=== PATIENT | male | born 1965 | race Caucasian/White ===

== ENCOUNTER 2019-12-21 15:28 | Outpatient (CLI) | payer OTHER, SELFPAY ==
--- NOTE | ~2019-12-21 | XR_ITS ---
EXAMINATION: XR lumbar spine 6V w bending DATE: 12/21/2019 15:57 INDICATION: Dorsalgia unspecified TECHNIQUE: Anteroposterior, lateral in neutral, flexion and extension, and bilateral oblique views of the lumbar spine, and cone-down lateral view of the lumbosacral junction were obtained. COMPARISON: None. FINDINGS: Bone alignment is normal. There is no laxity with flexion or extension. The vertebral body heights are maintained. There is mild loss of intervertebral disc space height at L5-S1. Small degene rative osteophytes project from the anterior endplates of multiple vertebral bodies. The bowel gas pa ttern is normal. IMPRESSION: 1. Mild lumbar spondylosis without acute findings. Reviewed, dictated and finalized at location A.
== END 2019-12-21 15:29 | disposition home or self-care (01) ==
PROVIDERS: PCP Family Medicine; Visit Provider Family Medicine
DX: M54.9 Dorsalgia, unspecified (principal); M47.816 Spondylosis without myelopathy or radiculopathy, lumbar region
CPT/HCPCS: 72114

== ENCOUNTER → 2020-02-14 09:48 | Outpatient (CLI) | payer OTHER, SELFPAY ==
--- NOTE | ~2020-02-14 | MR_ITS ---
EXAMINATION: MR lumbar spine wo con DATE: 02/14/2020 10:25 INDICATION: Lumbago with sciatica including occasional bilateral leg pain. TECHNIQUE: Magnetic resonance imaging (MRI) of the lumbar spine was performed without intravenous con trast. Sequences included sagittal T2-weighted FSE, sagittal T2-weighted FS FSE, sagittal T1-weighted FSE, and axial T2-weighted FSE. COMPARISON: Radiograph dated 12/21/2019 FINDINGS: 2-3 mm retrolisthesis of L5 on S1. Minimal lower lumbar levocurvature. Vertebral body heights are nor mal. Normal marrow signal. Mild disc desiccation and disc height loss, minimal at L3-L4 and mild at L4-L5 and L5-S1. The conus medullaris terminates at L1. There is normal signal in the caudal spinal c ord. Paravertebral soft tissues are unremarkable. The following disc levels are specifically discusse d: T12-L1: The disc does not extend beyond the endplate margin. There is mild right facet joint osteoart hritis. There is no neural foraminal stenosis. There is no central canal stenosis. L1-L2: The disc does not extend beyond the endplate margin. There is mild right facet joint osteoarth ritis. There is no neural foraminal stenosis. There is no central canal stenosis. L2-L3: The disc does not extend beyond the endplate margin. There is mild bilateral facet joint osteo arthritis. There is no neural foraminal stenosis. There is no central canal stenosis. L3-L4: Disc is mildly bulging with annular fissure at the left foraminal zone. There is mild bilatera l facet joint osteoarthritis. There is mild bilateral neural foraminal stenosis. There is no central canal stenosis. L4-L5: Disc is mildly bulging with annular fissure at the left foraminal zone There is mild right and mild to moderate left facet joint osteoarthritis. There is mild to moderate bilateral neural foramin al stenosis. There is minimal central canal stenosis. L5-S1: Disc is mildly bulging with superimposed left paracentral annular fissure and small disc extru connor with disc material extending 3 mm caudal to the level of the superior endplate of S1 and measuri ng 7 x 5 mm in orthogonal dimensions. There is mild bilateral facet joint osteoarthritis. There is mi ld bilateral neural foraminal stenosis. There is mild central canal stenosis with mild narrowing of t he left lateral recess. IMPRESSION: 1. Mild lumbar spondylosis. Reviewed, dictated and finalized at location A. IMPRESSION: 1. Mild lumbar spondylosis.
== END ==
PROVIDERS: PCP Family Medicine; Visit Provider Physician Assistant
DX: M54.40 Lumbago with sciatica, unspecified side (principal); M47.896 Other spondylosis, lumbar region
CPT/HCPCS: 72148